=== PATIENT | male | born 1950 | race Caucasian/White ===

== ENCOUNTER → 2018-10-22 | Outpatient (CLI) | payer OTHER | END | disposition home or self-care (01) | LOC: RAD 08:36 | PROVIDERS: ATTEND Internal Medicine Hematology & Oncology | DX: Z45.2 Encounter for adjustment and management of vascular access device (principal); C44.40 Unspecified malignant neoplasm of skin of scalp and neck | CPT/HCPCS: 36573; C1751 ==

== ENCOUNTER 2018-11-02 14:52 | Emergency (ER) | payer OTHER ==
[~2018-11-02] VITALS: Ht 175.3 cm; Wt 70.3 kg
[2018-11-02] MEDS ORDERED: SODIUM CHLORIDE 0.9% 500 ML IV ONE (15:02)
--- NOTE | 2018-11-02 15:38 | NUR ---
pt presents to ED, sent by oncologist for platelet level 14. pt has a PICC line in place to left upper arm. pt is a&o, resps even and unlabored, pt denies any symptoms at this time, denies hematemesis, denies hematochezia. pt to have platelet transfusion, labs pending at this time. blood bank preparing platelets, platelets are not ready at this time. Addendum: 11/02/18 at 1541 by DONNA task RN note: pt presents to ED, sent by oncologist for platelet level 14. pt has a PICC line in place to left upper arm. pt is a&o, resps even and unlabored, pt denies any symptoms at this time, denies hematemesis, denies hematochezia. pt to have platelet transfusion, labs pending at this time. blood bank preparing platelets, platelets are not ready at this time.
[2018-11-02 15:42] LABS: ANION GAP 6 mmol/L (5-15); CALCIUM 8.5 mg/dL (8.5-10.1); CHLORIDE 106 mmol/L (98-107)
[2018-11-02 15:44] LABS: CREATININE 1.22 mg/dL (0.7-1.3)
--- NOTE | 2018-11-02 15:53 | NUR ---
REPORT FROM JENNY SCALES. ASSUMED CARE OF PATIENT AT THIS TIME.
[2018-11-02 16:22] LABS: MEAN CORPUSCULAR HEMOGLOBIN 29.5 pg (27.5-34.5); MEAN CORPUSCULAR HGB CONC 32.8 g/dL (33.2-36.2); MEAN CORPUSCULAR VOLUME 89.9 fL (81-97); MEAN PLATELET VOLUME 9.9 fL (7.4-10.4); PLATELET COUNT 59 x10^3/uL (130-400); RED BLOOD COUNT 5.23 x10^6/uL (4.38-5.82); RED CELL DISTRIBUTION WIDTH 12.6 % (9.4-14.8)
[2018-11-02 16:23] LABS: MD YES
--- NOTE | 2018-11-02 16:32 | NUR ---
CONSENT FOR PLATELET TRANSFUSION SIGNED, PURPLE SLIP SENT TO BLOOD BANK, AWAITING PLATELETS TO BE READY.
[2018-11-02 17:12] VITALS: BP 163/80
--- NOTE | 2018-11-02 17:27 | NUR ---
PLATELETS TRANSFUSING PER MD ORDER, APPLESAUCE AND WARM BLANKET PROVIDED TO PATIENT PER REQUEST, OKAY TO EAT PER ERP. SPOUSE AT BEDSIDE, VS UPDATED IN CHART. AWAITING TRANSFUSION TO BE COMPLETE. CASSANDRA.
[2018-11-02 17:37] VITALS: BP 174/78
[2018-11-02 17:52] VITALS: BP 175/89
[2018-11-02 18:05] LABS: BAND#(MANUAL) 0.33 x10^3/uL; BANDS%(MANUAL) 6 % (0-7); EOS#(MANUAL) 0.17 x10^3/uL (0.0-0.4); EOS% (MANUAL) 3 % (1-7); LYMPH#(MANUAL) 1.98 x10^3/uL (1-3.4); LYMPHS% (MANUAL) 36 % (22-44); MONOS#(MANUAL) 0.22 x10^3/uL (0.3-2.7); MONOS% (MANUAL) 4 % (2-9); REACTIVE LYMPHS # (MANUAL) 0.11 x10^3/uL (0-0); REACTIVE LYMPHS % (MANUAL) 2 % (0-0); SEGS% (MANUAL) 49 % (42-75)
[2018-11-02 18:07] VITALS: BP 168/81
[2018-11-02 18:08] LABS: <PLATELET ESTIMATE> DECREASED; <PLT MORPHOLOGY> NORMAL PLT MORPH; <RBC MORPHOLOGY> NORMAL
[2018-11-02 18:29] VITALS: BP 182/86
[2018-11-02 18:30] VITALS: BP 182/86
--- NOTE | 2018-11-02 18:31 | NUR ---
BLOOD TRANSFUSION COMPLETE, NADN, NO TRANSFUSION REACTIONS.
--- NOTE | 2018-11-02 18:59 | NUR ---
TASK RN, ASSISTING PRIMARY. PT DISCHARGED HOME. PICC LINE CLEANED AND FLUSHED PER PROTOCOL. PT AMBULATORY TO DISCHARGE DESK.
== END 2018-11-02 19:02 | disposition home or self-care (01) ==
LOC: ED 15:44
DX: D69.6 Thrombocytopenia, unspecified (principal); C32.9 Malignant neoplasm of larynx, unspecified
CPT/HCPCS: 36415; 36430; 80048; 85025; 86850; 86900; 99285; J7040; P9037

== ENCOUNTER 2018-11-05 15:54 | Emergency (ER) | payer OTHER ==
[~2018-11-05] VITALS: Ht 175.3 cm; Wt 78.5 kg
[2018-11-05 16:11] VITALS: BP 163/92
[2018-11-05] MEDS ORDERED: TBO-FILGRASTIM 480 MCG/0.8 ML SQ SCH (16:30)
[2018-11-05] MEDS ORDERED: ONDANSETRON ODT 4 MG ONE (17:22)
[2018-11-05] MEDS ORDERED: ONDANSETRON ODT 8 MG PO PRN (17:30)
--- NOTE | 2018-11-05 17:31 | NUR ---
Patient given discharge instructions and they have confirmed that they understand the instructions. Patient ambulatory with steady gait. Pt left with d/c paperwork, prescription, and all personal belongings.
== END 2018-11-05 17:34 | disposition home or self-care (01) ==
LOC: ED 17:16
DX: R11.0 Nausea (principal); D72.819 Decreased white blood cell count, unspecified; Z00.00 Encounter for general adult medical examination without abnormal findings; Z85.818 Personal history of malignant neoplasm of other sites of lip, oral cavity, and pharynx
CPT/HCPCS: 96372; 99283; J1447; Q0162